=== PATIENT | female | born 1965 | race Caucasian/White ===

== ENCOUNTER 2023-11-24 06:05 | Emergency (ER) | payer BC, MEDICAID ==
[~2023-11-24] VITALS: Ht 162.6 cm; Wt 110.0 kg
[2023-11-24 06:06] VITALS: TEMP 97.9
[2023-11-24] MEDS ORDERED: NITR100C6 PO (06:44)
[2023-11-24 07:06] VITALS: BP 140/84; PULSE 89; RESP 14; O2SAT 98
[2023-11-24 07:11] LABS: CLARITY,URINE CLOUDY (Clear); COLOR,URINE ORANGE (Yellow)
[2023-11-24 07:12] LABS: URINE HCG NEGATIVE (NEG)
[2023-11-24 07:21] LABS: WBC,URINE TNTC /HPF (0-4)
[2023-11-24 07:25] LABS: RBC,URINE 50-100 /HPF (0-2)
[2023-11-24 07:26] LABS: BACTERIA,URINE 3+ /HPF (Neg)
[2023-11-24 07:30] LABS: SQUAMOUS EPITHELIAL CELL,UR MANY /LPF (FEW)
[2023-11-24 07:37] LABS: UA COLLECTION TYPE VOIDED
[2023-11-24 07:39] LABS: WBC CLUMPS,URINE FEW /HPF (NEGATIVE)
== END 2023-11-24 07:09 | disposition home or self-care (01) ==
LOC: ER 06:05
DX: N39.0 Urinary tract infection, site not specified (principal); Z88.2 Allergy status to sulfonamides; Z79.899 Other long term (current) drug therapy
CPT/HCPCS: 81001; 81025; 99283

== ENCOUNTER 2024-01-19 07:56 | Outpatient (CLI) | payer BC ==
[~2024-01-19 07:56] MED LIST: NITR100C6 PO
[2024-01-19 08:32] LABS: BASOPHILS # (AUTO) 0.1 X10'3 (0-0.2); BASOPHILS % (AUTO) 0.9 % (0-1); EOSINOPHILS # (AUTO) 0.3 X10'3 (0-0.9); EOSINOPHILS % (AUTO) 3.5 % (0-6); HEMATOCRIT 40.4 % (35.0-45.0); HEMOGLOBIN 13.2 g/dl (12.0-16.0); LYMPHOCYTES # (AUTO) 2.7 X10'3 (1.1-4.8); LYMPHOCYTES % (AUTO) 36.6 % (21-51); MEAN CORPUSCULAR HEMOGLOBIN 31.5 PG (27.0-31.0); MEAN CORPUSCULAR HGB CONC 32.8 g/dL (33.0-36.5); MEAN CORPUSCULAR VOLUME 95.9 FL (78-98); MEAN PLATELET VOLUME 7.9 FL (7.4-10.4); MONOCYTES # (AUTO) 0.5 X10'3 (0-0.9); MONOCYTES % (AUTO) 6.6 % (2-12); NEUTROPHILS # (AUTO) 3.8 X10'3 (1.8-7.7); NEUTROPHILS % (AUTO) 52.4 % (42-75); PLATELET COUNT 289 X10'3 (140-440); RED BLOOD COUNT 4.21 X10'6 (4.20-5.60); RED CELL DISTRIBUTION WIDTH 12.4 % (11.5-14.5); WHITE BLOOD COUNT 7.3 X10'3 (4.5-11.0)
[2024-01-19 08:49] LABS: ALANINE AMINOTRANSFERASE 22 U/L (12-78); ALBUMIN 3.4 G/DL (3.4-5.0); ALKALINE PHOSPHATASE 45 IU/L (46-116); ANION GAP 4 (8-16); ASPARTATE AMINO TRANSFERASE 20 U/L (10-37); BILIRUBIN,TOTAL 0.3 MG/DL (0.1-1.0); BLOOD UREA NITROGEN 12 MG/DL (7-18); BUN/CREATININE RATIO 14.5 (10.0-20.0); CALCIUM 8.9 MG/DL (8.5-10.1); CHLORIDE 105 MMOL/L (99-107); CREATININE 0.83 MG/DL (0.40-0.90); GLUCOSE 111 MG/DL (70-104); POTASSIUM 4.1 MMOL/L (3.5-5.1); SODIUM 138 MMOL/L (135-145); TOTAL CARBON DIOXIDE 28.7 MMOL/L (24-32); TOTAL PROTEIN 6.9 G/DL (6.4-8.2); eGFR 71 ML/MIN
[2024-01-19 08:59] LABS: CHOL/HDL RATIO 3.1 (0.00-4.99); CHOLESTEROL 196 MG/DL (0-200); HDL CHOLESTEROL 63 MG/DL (35-60); LDL CHOLESTEROL 97 MG/DL (50-100); THYROID STIMULATING HORMONE 2.11 ulU/ml (0.34-4.50); TRIGLYCERIDES 111 MG/DL (20-135)
[2024-01-19 10:29] LABS: % IRON SATURATION 25 % (11-46); IRON 89 UG/DL (49-151); TOTAL IRON BINDING CAPACITY 353 UG/DL (259-388)
[2024-01-20 11:18] LABS: ESTRADIOL 78.9 pg/mL (.); THYROXINE (T4) 6.4 ug/dL (4.5-12.0)
[2024-01-20 17:55] LABS: FOLATE SERUM(FOLIC) 8.4 ng/mL (>3.0)
== END 2024-01-19 23:59 | disposition home or self-care (01) ==
LOC: LAB 07:56
PROVIDERS: ATTEND Physician Assistant
DX: R73.03 Prediabetes (principal); E66.01 Morbid (severe) obesity due to excess calories; R53.83 Other fatigue; E89.41 Symptomatic postprocedural ovarian failure
CPT/HCPCS: 36415; 80053; 80061; 82607; 82670; 82746; 83540; 83550; 84402; 84436; 84443; 85025

== ENCOUNTER → 2024-05-29 | Outpatient (CLI) | payer BC ==
[2024-05-31 05:12] LABS: PROGESTERONE 0.9 ng/mL (.); TESTOSTERONE, SERUM 14 ng/dL (4-50)
== END | disposition home or self-care (01) ==
LOC: LAB 10:12
PROVIDERS: ATTEND Physician Assistant
DX: E89.41 Symptomatic postprocedural ovarian failure (principal)
CPT/HCPCS: 36415; 82672; 84144; 84402; 84403